=== PATIENT | male | born 1950 | race Two or more races ===

== ENCOUNTER 2023-11-05 15:06 | Inpatient (IN) | payer OTHER ==
[~2023-11-05] VITALS: Ht 162.6 cm; Wt 72.6 kg
[~2023-11-05 15:06] MED LIST: AMOX1TAB12 PO; CIPRO500 MG PO; DICLOFENAC SODI50 MG PO; FLAGYL500MG PO; INTESTINEX1 CA1 PO; KETO10TA2 PO; MED PARA B/P; MEDROLPACK PO; ORPH100T PO; PROTONIX40 MG PO; SEPTRA DS TABLE1 TAB PO; TRAM1TAB PO
--- NOTE | 2023-11-05 15:12 | NUR ---
PACIENTE ALERTA Y ORIENTADO X 3, LLEGA EN AMBULANCIA CON PARAMEDICOS Y FAMILIAR ANNA REFIERE MELENA X 7 DESDE ASHLY Y HOY VOMITOS X 1 CON LISA.
[2023-11-05] MEDS ORDERED: 0.9 % SODIUM CHLORIDE 1,000 ML IV ONE (16:30)
[2023-11-05] MEDS ORDERED: PANTOPRAZOLE SODIUM 40 MG/VIAL VIAL IV ONE ×2 (16:30→17:30)
[2023-11-05] MEDS ORDERED: CEFTRIAXONE SODIUM 1,000 MG VIAL IV ONE (16:30)
--- NOTE | 2023-11-05 16:38 | NUR ---
PACIENTE EVALUADO POR DR TONY MCKEEIEN ORDENA TRATAMIENTO MEDICO, SE LE ORIENTA A PACIENTE SOBRE EL MISMO Y VERBALIZA ENTENDER, SE LE COLECTAN MUESTRAS Y SE CANALIZA BAJO MEDIDAS ASEPTICAS. SE ADMINISTRAN MEDICAMENTOS OPAL ORDEN, SE LE HACE ENTREGA DE ENVASE PARA COLECTA DE U/A, OCCULT BLOOD Y CONTRASTES PO.
[2023-11-05 16:53] LABS: HEMATOCRIT 23.9 % (39.0-48.0); MEAN CELL VOLUME 92.5 fL (80.0-100.00); MEAN CORPUSCULAR HGB CONC 30.5 g/dl (32.0-36.0); PLATELET COUNT 251 K/uL (150-450); RED BLOOD COUNT 2.59 M/uL (4.00-6.00)
[2023-11-05 17:06] LABS: HEMOGLOBIN 7.3 g/dL (13-16.00); MEAN CORPUSCULAR HEMOGLOBIN 28.1 pg (27.00-32.0); RED CELL DISTRIBUTION WIDTH 18.3 % (11.5-14.5)
[2023-11-05 17:12] LABS: INR 1.7; PARTIAL THROMBOPLASTIN TIME 30.5 SECONDS (22.0-34.0)
[2023-11-05 17:13] LABS: PROTHROMBIN TIME 17.2 SECONDS (9.0-11.5)
[2023-11-05 17:18] LABS: ALBUMIN 1.8 gm/dL (3.4-5.0); BILIRUBIN TOTAL 5.3 mg/dL (0.3-1.2); CALCIUM 10.4 mg/dL (8.5-10.1); CREATININE SERUM 1.5 mg/dL (0.70-1.30); GFR 45.75; GLOBULINA 5.9 G/DL (2.4-3.5); POTASSIUM 5.58 mEq/L (3.5-5.1); TOTAL PROTEIN 7.7 gm/dL (6.4-8.2)
[2023-11-05] MEDS ORDERED: MEPERIDINE HCL/PF 50 MG/ML VIAL IM ONE (17:45)
[2023-11-05] MEDS ORDERED: PROMETHAZINE HCL 25 MG/ML AMPUL IM ONE (17:45)
[2023-11-05] MEDS ORDERED: OCTREOTIDE ACETATE 0.05MG/ML (50MCG/ML) AMPUL IV ONE (18:45)
[2023-11-05] MEDS ORDERED: NOREPINEPHRINE BITARTRATE 1 MG/ML AMPUL IV ONE (18:45)
--- NOTE | 2023-11-05 18:54 | NUR ---
5:40PM: PACIENTE ALERTA, ORIENTADO X3 Y ACTIVO QUIEN VERBALIZA TENER AVANI DOLOR ABDOMINAL. SE LE NOTIFICA A DR JIMENEZ QUIEN ORDENA TRATAMIENTO PARA EL DOLOR 5:50PM: PACIENTE VERBALIZA QUE NO QUIERE EL DEMEROL. NO SE LE ADMINISTRA EL MISMO. 5:58PM: SE OBSERVA PACIENTE CON RESPIRACIONES AGONICAS. SE LE NOTIFICA A DR JIMENEZ. SE OSERVA PACIENTE CON VOMITOS COLOR COFFE BROWN E HIPOACTIVO. SE TRASLADA EL MISMO A AREA DE ICU 2 Y SE UBICA EN CAMA, SE CONECTA A MONITOR CARDIACO Y OXIMETRIA DE PULSO CONTINUA. 6:02PM: PACIENTE SIN PULSO Y SIN PRESIONES AUDIBLES. SE COMIENZA CLAVE TASH. SE COMIENZA ACLS. AL MOMENTO DE LA CLAVE SE ENCUENTRA DR JIMENEZ, MS LATONYA, MR AMBROSE, MS LAMONT, MR TESSY Y PERSONAL DE TERAPIA RESPIRATORIA MS RENDON. 6:04PM: DR TONY GIRALDO ADMINISTRAR PRIMERA EPINEFRINA, SE EJECTUA ORDEN MEDICA. SE CONTINUA CON MEDIDAS DE ACLS. 6:07PM: PACIENTE CONTINUA SIN PULSO. 6:08PM: DR JIMENEZ INTENTRachna INTUBAR A PACIENTE SIN EXITO. 6:09PM: DR TONY GIRALDO ADMINISTRAR SEGUNDA EPINEFRINA, SE EJECTUA ORDEN MEDICA. LLEGA A UNIDAD PERSONAL DE ANESTESIA. 6:10PM: MR ARIANA PERSONAL DE ANESTESIA INTUBA A PACIENTE CON EXITO CON TUBO #7.5 FIJADO EN 23 CM. 6:11PM: PACIENTE CONTINUA SIN PULSO, SE CONTINUA CON ACLS. 6:14PM: PACIENTE CONTINUA SIN PULSO DR TONY GIRALDO VERBALMENTE ADMINISTRAR TERCERA EPINEFRINA, SE EJECUTA ORDEN MEDICA. 6:15PM: DR TONY GIRALDO VERBALMENTE ADMNISTRAR AMPOLLETA DE BICARBONATO IV, SE EJECUTA ORDEN MEDICA. 6:18PM: PACIENTE CONTINUA SIN PULSO, SE CONTINUA CON MEDIDAS DE ACLS. 6:19PM: DR TONY GIRALDO ADMINSITRAR CUARTA EPINEFRINA. SE EJECUTA ORDEN MEDICA. 6:20PM: DR TONY GIRALDO VERBALMENTE ADMNSITRAR AMPOLLETA DE BICARBONATO IV. SE EJECTURA ORDEN MEDICA. 6:23PM: PACIENTE CON PULSO PALPABLE 74 LATIDOS POR MINUTO SAT: 96%, NO SE AUSCULTA PRESIONES MANUALES. 6:30PM: SE LE COLOCA DRIP DE PROTONIX 80MG / 100ML BAJANDO A 10ML/HR Y LEVOPHED 8MG 250ML D5W% COMENZANDO A 20ML/HR OPAL ORDEN MEDICA VERBAL. SE ADMINSITRAN MEDICAMENTOS PENDIENTES BAJO MEDIDAS ASEPTICAS, SE LE HACE ENTREGA DE PACIENTE A MS DEIDRA PARA CONTINUIDAD DE TRATAMIENTO MEDICO.
[2023-11-05] MEDS ORDERED: SODIUM BICARBONATE 150 MEQ in DEXTROSE 5 % IN WATER 1,000 ML IV ONE (19:00)
[2023-11-05] MEDS ORDERED: OCTREOTIDE ACETATE 1,000 MCG/5 ML VIAL IJ SCH (19:30)
[2023-11-05] MEDS ORDERED: OCTREOTIDE ACETATE 1,250 MCG in 0.9 % SODIUM CHLORIDE 250 ML IV SCH (19:45)
[2023-11-05] MEDS ORDERED: PANTOPRAZOLE SODIUM 80 MG in 0.9 % SODIUM CHLORIDE 100 ML IV SCH (19:45)
--- NOTE | 2023-11-05 20:26 | NUR ---
SE CONTINUA CON CUIDADO DE PACIENTE PREVIAMENTE MANEJADO POR NABEEL MCALLISTER Y DR JIMENEZ.PACIENTE CON CANALIZACIONES PATENTES CON DRIP DE LEVOPHED Y PROTONIX SE CANALIZA PARA DRIP DE BICARBONATO, PRBC Y DRIP DE SANDOSTATIN CON MEDIDAS ASEPTICAS CORRESPONDIENTES. TODOS LOS IVF'S BAJANDO POR MAQUINA DE IVPUMP. SE COMIENZA PRBC REQUISADA CON DR JIMENEZ OPAL PROTOCOLO PARA TRANSFUNDIR STAT.
[2023-11-05] MEDS ORDERED: DEXTROSE 50 % IN WATER 0.5 G/ML VIAL IV ONE (21:15)
[2023-11-05] MEDS ORDERED: ONDANSETRON HCL 4 MG in 0.9 % SODIUM CHLORIDE 50 ML IV ONE (22:30)
[2023-11-05] MEDS ORDERED: ONDANSETRON HCL 4 MG in 0.9 % SODIUM CHLORIDE 50 ML IV PRN (22:30)
[2023-11-05] MEDS ORDERED: 0.9 % SODIUM CHLORIDE 1,000 ML IV SCH (22:30)
[2023-11-05] MEDS ORDERED: ALBUMIN HUMAN-25 0.25GM/ML (50ML) VIAL IV SCH (22:34)
[2023-11-05] MEDS ORDERED: NOREPINEPHRINE BITARTRATE 8 MG in DEXTROSE 5 % IN WATER 250 ML IV SCH (23:45)
[2023-11-06] MEDS ORDERED: MEROPENEM 500 MG/VIAL VIAL IV SCH (01:00)
[2023-11-06 02:45] LABS: FIBRINOGEN 134 mg/dL (187.0-446.0)
[2023-11-06 02:55] LABS: ALBUMIN 1.5 gm/dL (3.4-5.0); BILIRUBIN TOTAL 3.49 mg/dL (0.3-1.2); BILIRUBIN,CONJUGATED 2.53 mg/dL (0.0-0.2); BILIRUBIN,UNCONJUGATED 0.96 mg/dL (0.0-0.6); TOTAL PROTEIN 5.4 gm/dL (6.4-8.2)
[2023-11-06 03:25] LABS: AMYLASE 122 U/L (25-115)
[2023-11-06 03:51] LABS: D DIMER > 35.20 MG/L; LIPASE 135 U/L (13-75)
[2023-11-06 07:03] LABS: ABG PH 6.947 (7.35-7.45); ABG PO2 252.4 mmHg (80-100); ABG pCO2 54.2 mmHg (35-45); BASE EXCESS -20.9 mmol/l; BICARBONATE 11.6 mmol/l (23-25); SaO2 99.2 %; Tco2 13.2 mmol/l; allen test SATISFACTORY; o2 100 %; puncture site RADIAL LEFT
[2023-11-06] MEDS ORDERED: PHENYLEPHRINE HCL 20 MG in 0.9 % SODIUM CHLORIDE 250 ML IV SCH (07:30)
[2023-11-06] MEDS ORDERED: SODIUM BICARBONATE 150 MEQ in DEXTROSE 5 % IN WATER 1,000 ML IV SCH (08:15)
[2023-11-06 08:31] LABS: ABG PO2 221.3 mmHg (80-100); ABG pCO2 48.6 mmHg (35-45); BASE EXCESS -21.7 mmol/l; BICARBONATE 10.5 mmol/l (23-25); SaO2 98.8 %; Tco2 11.9 mmol/l; allen test SATISFACTORY; o2 80 %; puncture site RADIAL LEFT
[2023-11-06] MEDS ORDERED: SODIUM BICARBONATE 1 MEQ/ML DISP.SYRIN 50ML IV ONE (08:35)
[2023-11-06] MEDS ORDERED: EPINEPHRINE HCL/PF 4 MG in DEXTROSE 5 % IN WATER 250 ML IV SCH (13:45)
[2023-11-06] MEDS ORDERED: EPINEPHRINE HCL/PF 1 MG/ML AMPUL ONE (13:51)
[2023-11-06] MEDS ORDERED: HYDROCORTISONE SODIUM SUCC/PF 100 MG VIAL IV SCH (17:00)
[2023-11-06] MEDS ORDERED: AA 4.25%/CAL/LYTES/DEXT 5% 1,000 ML PERIFERAL SCH (17:00)
[2023-11-06] MEDS ORDERED: OCTREOTIDE ACETATE 1,250 MCG in 0.9 % SODIUM CHLORIDE 250 ML IV SCH (20:00)
== END 2023-11-07 07:12 | disposition expired | DRG 871 ==
LOC: ER 15:06 → ICU-2 22:29 → ICU 22:29 → ICU-2 11-07 00:24
PROVIDERS: General Practice; ADMIT Internal Medicine; ATTEND Internal Medicine
PROC: 0BH17EZ Insertion of Endotracheal Airway into Trachea, Via Natural or Artificial Opening (ICD-10-PCS; principal; 2023-11-05)
PROC: 5A1935Z Respiratory Ventilation, Less than 24 Consecutive Hours (ICD-10-PCS; 2023-11-05)
PROC: 30233N1 Transfusion of Nonautologous Red Blood Cells into Peripheral Vein, Percutaneous Approach (ICD-10-PCS; 2023-11-05)
PROC: B24BZZZ Ultrasonography of Heart with Aorta (ICD-10-PCS; 2023-11-06)
DX: A41.9 Sepsis, unspecified organism (principal); K76.7 Hepatorenal syndrome; R65.21 Severe sepsis with septic shock; K92.1 Melena; N17.9 Acute kidney failure, unspecified; I46.9 Cardiac arrest, cause unspecified; R57.1 Hypovolemic shock; D64.9 Anemia, unspecified; F10.20 Alcohol dependence, uncomplicated; Z95.1 Presence of aortocoronary bypass graft; Z20.822 Contact with and (suspected) exposure to COVID-19; F17.200 Nicotine dependence, unspecified, uncomplicated; I11.0 Hypertensive heart disease with heart failure; I50.9 Heart failure, unspecified